=== PATIENT | male | born 1995 | race African-American/Black ===

== ENCOUNTER 2016-10-06 19:36 | Inpatient (IN) | payer OTHER ==
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
--- NOTE | ~2016-10-06 | PA ---
Unit #: [id number] #: [id number] Patient: GHANSHYAM SMITH [id number] [facility] [place] [address] [id number] MR#: [id number] NAME: GHANSHYAM SMITH ROOM: P210 Age: 20 Sex: M Admission Date: 10/06/2016 : 1995 Date of Assessment: Attending Physician: Ganga Quintanilla M.D. Admitting Physician: Ganga Quintanilla M.D. Primary Care Physician: Self Referral-Refer Use Only PSYCHIATRIC ASSESSMENT INFORMANTS The patient reliability, fair; chart reliability, good. CHIEF COMPLAINT Detox from drugs. HISTORY OF PRESENT ILLNESS Ghanshyam Smith is a 20-year-old male, seen on with the above-mentioned complaint. The patient reported tobacco use, age of onset 15; opioid, age of onset 19. The patient reported longest period of sobriety 3 months and last sobriety was 09/08/2015. The patient reported history of blackout and withdrawal symptom, but denied any history of HIV, hepatitis, or any IV drug use. Currently, reporting diaphoresis, depressed mood, irritability, headache, nervousness, poor concentration, restlessness, sleep problem, tremor, and abdominal cramping. The patient reported his drug of choice as opioids. The patient is needing inpatient admission at this time for psychiatric stabilization. The patient reported using heroin 2 g nasally, last use 8:00 a.m. this morning, 1 g. Currently, denied any suicidal or homicidal ideation or any psychotic symptom. PAST PSYCHIATRIC HISTORY Remarkable for history of previous treatment, [facility]. FAMILY HISTORY AND SOCIAL HISTORY The patient lives at home with mother and sister. Diagnosed with bipolar disorder. History of substance abuse. No history of any abuse. MEDICAL HISTORY Unremarkable for any chronic medical illness. Musculoskeletal; muscle strength and tone, no atrophy or abnormal movement. Gait normal. MEDICATION HISTORY None. ALLERGIES No known drug allergies. SUBSTANCE ABUSE HISTORY Please see above. REVIEW OF SYSTEMS Unit #: [id number] #: [id number] Patient: GHANSHYAM SMITH HEENT: Eyes, clear. Ears, nose, mouth, and throat; clear. CARDIOVASCULAR: Unremarkable. RESPIRATORY: Unremarkable. GI: Unremarkable. : Unremarkable. SKIN: Unremarkable. LYMPH NODE: Unremarkable. NEUROLOGIC: Unremarkable. ENDOCRINE: Unremarkable. HEMATOLOGIC: Unremarkable. ALLERGIC/IMMUNOLOGIC: Unremarkable except as mentioned in HPI. MENTAL STATUS EXAMINATION CONSTITUTIONAL: Measurement of vital signs; temperature 97.8, pulse 86, respirations 20, and blood pressure 131/80. Height 6 feet 2 inches and weight 175 pounds. GENERAL APPEARANCE: The patient dressed casually. The patient did not show any facial deformity. MUSCULOSKELETAL: Please see above. PSYCHIATRIC EXAMINATION Description of speech; regular rate, normal volume, normal articulation. Description of thought process, goal directed. Description of association, intact. Description of abnormal psychotic thinking; the patient denied any hallucinations or delusions, but mood lability, substance abuse. Description of the patient's judgment: Concerning everyday activity, poor. Social situation, poor. Concerning psychiatric condition, poor. Please refer to HPI for details. Complete mental status examination; oriented in time, place, and person. Recent and remote memory, fair. Attention span and concentration, fair. Language; able to name object, repeat phrases. Fund of knowledge; aware of current event, passive vocabulary intact. Mood and affect, sad and dysphoric. Insight and judgment, fair to poor. ASSETS AND LIABILITIES Assets; the patient is articulate, able to take care of his ADL. Liabilities; history of substance abuse, depression. ADMITTING DIAGNOSES Psychiatric: Opioid use disorder, severe, F11.20. Secondary diagnosis: Deferred. Medical diagnosis: None. Stressors: Psychosocial stressors. PSYCHIATRIC PLAN, TREATMENT GOAL, AND DISCHARGE PLAN 1. Advised to admit the patient on the inpatient unit. Provide safe, supportive, and structured environment. 2. Ordered labs; CBC, CMP, UA, and UDS. 3. Detox precaution and detox protocol. 4. The patient is to attend all the programing. If needed, consider further adjustment of medication. Group therapy, individual therapy, medication management if needed. 5. Treatment goal is to attain euthymic mood, gain insight into his problem, and learn coping skills. Unit #: [id number] #: [id number] Patient: GHANSHYAM SMITH 6. Discharge plan: Plan is to stabilize the patient and consider followup in outpatient program. ESTIMATED LENGTH OF STAY 3 to 5 days. Dictated by... Ganga Quintanilla M.D. YAMINI/kolton TD: 10/07/2016 21:12 JOB #: [id number] PSYCHIATRIC ASSESSMENT Page 1 of 1 X Ganga Quintanilla MD PSYCHIATRIC ASSESSMENT
--- NOTE | ~2016-10-06 | DS ---
Unit #: [id number] #: [id number] Patient: GIN SMITH [id number] [facility] [address] [place] [address] [id number] MR#: [id number] NAME: GIN SMITH ROOM: [facility] Age: 20 Sex: M Admission Date: 10/06/2016 : 1995 Discharge Date: 10/08/2016 Attending Physician: Ganga Quintanilla M.D. Primary Care Physician: Self Referral-Refer Use Only DISCHARGE SUMMARY REASON FOR ADMISSION Detox from heroin. DIAGNOSTIC STUDIES LABORATORY RESULTS: Unremarkable except urine drug screen positive for marijuana. HOSPITAL COURSE The patient was admitted to inpatient unit on 10/06/2016 and discharged on 10/08/2016. The patient was treated on the inpatient unit with group therapy, individual therapy, and medication management. The patient responded well with the above modalities of treatment. Subsequently, the patient was discharged with a plan to follow up in outpatient program. DISCHARGE MEDICATIONS None. DISCHARGE DIAGNOSES Psychiatric: 1. Bipolar mood disorder, not otherwise specified, F31.89. 2. Opioid use disorder, severe. 3. Cannabis abuse, moderate to severe. Secondary diagnosis: Deferred. Medical diagnosis: None. Stressors: Psychosocial stressors. DISCHARGE INSTRUCTIONS The patient is to follow up in outpatient clinic as per social service manager. CONDITION ON DISCHARGE The patient is pleasant and cooperative. Denied any psychotic symptom or any suicidal ideation. PROGNOSIS Guarded. DIET AND ACTIVITY As tolerated. Dictated by... Unit #: [id number] #: [id number] Patient: GIN SMITH Harvinder Okeefe/janyl TD: 10/08/2016 22:22 JOB #: [id number] DISCHARGE SUMMARY Page 1 of 1 X Ganga Quintanilla MD X DISCHARGE SUMMARY
--- NOTE | ~2016-10-06 | PN ---
Unit #: [id number] #: [id number] Patient: LELO SMITH [id number] [facility] [address] [place] [address] [id number] MR#: [id number] NAME: LELO SMITH ROOM: [facility] Age: 20 Sex: M Admission Date: 10/06/2016 : 1995 Attending Physician: Ganga Quintanilla M.D. Admitting Physician: Ganga Quintanilla M.D. Primary Care Physician: Self Referral-Refer Use Only [facility] PROGRESS NOTES DATE OF SERVICE: 10/07/2016 DISCUSSION Lelo Smith is a 20-year-old male, seen on 10/07/2016. The patient interviewed, chart reviewed, and obtained information from nursing staff. The patient continues to be seclusive, isolative, guarded, flat affect, withdrawn. The patient's vital signs; temperature 97.8, pulse 67, respirations 16, and blood pressure 124/77. Complete review of systems unremarkable. MENTAL STATUS EXAMINATION General appearance, the patient dressed casually. Attention span and concentration, poor. Oriented in place and person. Mood and affect, labile. Speech, monotone. Thought process, concrete. The patient denied any thoughts of harming self or others, but guarded, withdrawn, isolative, seclusive. Recent and remote memory, poor. Insight and judgment, poor. DIAGNOSIS Opioid use disorder, severe. ASSESSMENT AND PLAN Advised to continue with current medication and therapeutic protocol. We will monitor response to medication and make further adjustment of medication. Dictated by... Harvinder Okeefe/kolton TD: 10/07/2016 18:20 JOB #: [id number] Unit #: [id number] #: [id number] Patient: LELO SMITH PROGRESS NOTES Page 1 of 1 X Ganga Quintanilla MD X PROGRESS NOTE
[~2016-10-06 19:36] MED LIST: NO MEDICATIONS
[2016-10-07 09:36] LABS: BASOPHIL% 0.3 % (0-2.5); EOSINOPHIL# 0.1 X10e3 (0-0.7); HEMATOCRIT 42.3 % (38.0-50.0); HEMOGLOBIN 14.1 gm/dL (13.0-16.0); LYMPHOCYTE# 1.8 X10e3 (1.0-3.5); LYMPHOCYTE% 22.8 % (17.0-45.0); MEAN CELL VOLUME 91.2 FL (83-96); MEAN CORPUSCULAR HEMOGLOBIN 30.4 PG (28-34); MEAN CORPUSCULAR HGB CONC 33.3 g/dL (30-36); MONOCYTE# 1.5 X10e3 (0-1.0); MONOCYTE% 18.1 % (3.0-12.0); NEUTROPHIL# 4.7 X10e3 (1.5-7.1); NEUTROPHIL% 57.8 % (40-75); PLATELET COUNT 314 X10e3 (140-420); RED BLOOD COUNT 4.64 X10e (3.90-5.60); RED CELL DISTRIBUTION WIDTH 13.2 % (11.0-15.5); WHITE BLOOD COUNT 8.1 X10e3 (4.0-10.5)
[2016-10-07 09:39] LABS: DIFF IND NO
[2016-10-07 10:06] LABS: ALBUMIN SERUM 3.9 g/dL (3.5-5.0); ALKALINE PHOSPHATASE 73 U/L (32-92); ALT (SGPT) 14 U/L (10-40); AST (SGOT) 15 U/L (10-42); BILIRUBIN,TOTAL 0.2 mg/dL (0.2-2.0); BLOOD UREA NITROGEN 10 mg/dL (9-23); BUN/CREATININE RATIO 9.09; CALCIUM SERUM 9.7 mg/dL (8.4-10.2); CARBON DIOXIDE 29 mmol/L (22-31); CHLORIDE 105 mmol/L (100-111); CREATININE SERUM 1.1 mg/dL (0.6-1.4); GLOM FILT RATE Estimated ABOVE60 mL/min (>60); GLUCOSE FASTING 95 mg/dL (70-110); POTASSIUM 4.4 mmol/L (3.5-5.1); PROTEIN TOTAL SERUM 6.7 g/dL (6.0-8.3); SODIUM 139 mmol/L (135-145)
== END 2016-10-08 11:24 | DRG 897 ==
LOC: P2S 19:36
PROVIDERS: Psychiatry & Neurology Psychiatry
PROC: HZ2ZZZZ Detoxification Services for Substance Abuse Treatment (ICD-10-PCS; principal; 2016-10-06)
DX: F11.20 Opioid dependence, uncomplicated (principal); F39 Unspecified mood [affective] disorder; F32.9 Major depressive disorder, single episode, unspecified; G89.29 Other chronic pain; M54.9 Dorsalgia, unspecified
CPT/HCPCS: 80053; 85025; 86592

== ENCOUNTER 2016-11-18 20:02 | Inpatient (IN) | payer OTHER ==
--- NOTE | ~2016-11-18 | DS ---
Unit #: [id number] #: [id number] Patient: GIN SMITH [id number] [facility] [address] [place] [address] [id number] I MR#: [id number] NAME: GIN SMITH ROOM: [facility] Age: 20 Sex: M Admission Date: 11/18/2016 : 1995 Discharge Date: 11/20/2016 Attending Physician: Ganga Quintanilla M.D. Primary Care Physician: Self Referral-Refer Use Only DISCHARGE SUMMARY REASON FOR ADMISSION Detox. DIAGNOSTIC STUDIES Remarkable for urine drug screen, positive for opiate. HOSPITAL COURSE The patient was admitted to the inpatient unit, on November 18, and discharged on 11/20/2016. The patient was treated with group therapy, individual therapy, and medication management. Detox protocol, detox monitoring. The patient was subsequently discharged and showed improvement and the patient was discharged on no medications. DISCHARGE DIAGNOSES Moore I Opiate use disorder, [id number], F11.20. Mood disorder, NOS, F32.9. Moore II Deferred. Moore III None. Moore IV Psychosocial stressors. Moore V INSTRUCTIONS TO PATIENTS The patient is to follow up in outpatient clinic and clinical social worker. CONDITION AT DISCHARGE The patient is pleasant and cooperative, denied any psychotic symptoms or any suicidal ideation. PROGNOSIS Guarded. DIET AND ACTIVITY As tolerated. Dictated by... Unit #: [id number] #: [id number] Patient: GIN SMITH Harvinder Okeefe/rufina TD: 11/21/2016 07:13 JOB #: [id number] DISCHARGE SUMMARY Page 1 of 1 X Ganga Quintanilla MD X DISCHARGE SUMMARY
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
[2016-11-19 12:35] LABS: ALBUMIN SERUM 3.9 g/dL (3.5-5.0); BILIRUBIN,TOTAL 0.4 mg/dL (0.2-2.0); BUN/CREATININE RATIO 10.9; CALCIUM SERUM 9.5 mg/dL (8.4-10.2); CREATININE SERUM 1.1 mg/dL (0.6-1.4); GLOM FILT RATE Estimated 110.7 mL/min (>60); POTASSIUM 4.1 mmol/L (3.5-5.1); PROTEIN TOTAL SERUM 6.5 g/dL (6.0-8.3)
[2016-11-19 12:44] LABS: BASOPHIL% 0.4 % (0-2.5); EOSINOPHIL# 0.1 X10e3 (0-0.7); EOSINOPHIL% 2.6 % (0.0-7.0); HEMATOCRIT 43.7 % (38.0-50.0); HEMOGLOBIN 14.3 gm/dL (13.0-16.0); LYMPHOCYTE# 1.6 X10e3 (1.0-3.5); LYMPHOCYTE% 40.1 % (17.0-45.0); MEAN CELL VOLUME 92.2 FL (83-96); MEAN CORPUSCULAR HEMOGLOBIN 30.2 PG (28-34); MEAN CORPUSCULAR HGB CONC 32.7 g/dL (30-36); MEAN PLATELET VOLUME 8.5 FL (6.5-11.5); MONOCYTE# 0.8 X10e3 (0-1.0); MONOCYTE% 20.8 % (3.0-12.0); NEUTROPHIL# 1.5 X10e3 (1.5-7.1); NEUTROPHIL% 36.1 % (40-75); PLATELET COUNT 218 X10e3 (140-420); RED BLOOD COUNT 4.74 X10e (3.90-5.60); RED CELL DISTRIBUTION WIDTH 13.7 % (11.0-15.5)
[2016-11-19 12:51] LABS: DIFF IND YES
[2016-11-19 13:12] LABS: PLATELET ESTIMATE NORMAL (NORMAL)
[2016-11-19 13:13] LABS: ANISOCYTOSIS SL
[2016-11-19 13:14] LABS: RBC NORMAL YES
[2016-11-20 09:39] LABS: URINE APPEARANCE CLEAR; URINE BILIRUBIN NEG (NEG); URINE BLOOD NEG (NEG); URINE COLOR YELLOW; URINE GLUCOSE NEG (NEG); URINE KETONE NEG (NEG); URINE LEUKOCYTE ESTERASE NEG (NEG); URINE NITRATE NEG (NEG); URINE PH 8.5 (5-8); URINE PROTEIN NEG (NEG); URINE SPECIFIC GRAVITY 1.018 (1.003-1.035); URINE UROBILINOGEN 0.2 MG/DL (NEG)
[2016-11-20 11:02] LABS: AMPHETAMINE NEG (NEG); BARBITURATES NEG (NEG); BENZODIAZEPINES NEG (NEG); COCAINE NEG (NEG); MARIJUANA NEG (NEG); OPIATES POS (NEG); TRICYCLIC ANTIDEPRESSANTS NEG (NEG); U METHADONE NEG (NEG)
== END 2016-11-20 11:20 | DRG 885 ==
LOC: P1E 20:02
PROVIDERS: Psychiatry & Neurology Psychiatry
PROC: HZ2ZZZZ Detoxification Services for Substance Abuse Treatment (ICD-10-PCS; principal; 2016-11-18)
DX: F39 Unspecified mood [affective] disorder (principal); F11.20 Opioid dependence, uncomplicated; F32.9 Major depressive disorder, single episode, unspecified
CPT/HCPCS: 80053; 80307; 81003; 85025; 86592

== ENCOUNTER 2017-01-27 20:00 | Inpatient (IN) | payer OTHER ==
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
--- NOTE | ~2017-01-27 | PN ---
Unit #: [id number] #: [id number] Patient: GIN SMITH [id number] [facility] [address] [place] [address] [id number] MR#: [id number] NAME: GIN SMITH ROOM: [facility] Age: 21 Sex: M Admission Date: 01/27/2017 : 1995 Attending Physician: Loc Jenkins M.D. Admitting Physician: Loc Jenkins M.D. Primary Care Physician: Primary Care Physician Johana GEORGE NOTES DATE OF SERVICE 01/30/2017 DISCUSSION Mr. Smith is a 21-year-old male who was seen today. Chart was reviewed and case was discussed with the staff. He has been getting anxious, restless, agitated, and irritable, and wanting to sign himself out of the treatment and has been showing poor insight into his situation and poor motivation towards treatment. However, he denies any suicidal or homicidal ideation. I strongly encouraged and advised him to complete chemical dependency medical detox treatment program. We will monitor his response to treatment interventions, and we will make further adjustments as needed. Dictated by... Harvinder Wagner/sanchez TD: 01/30/2017 08:57 JOB #: [id number] ANEL GEORGE NOTES Page 1 of 1 X Loc Jenkins MD PROGRESS NOTE
--- NOTE | ~2017-01-27 | DS ---
Unit #: [id number] #: [id number] [facility] [id number] [facility] [address] [place] [address] [id number] I MR#: [id number] NAME: GIN SMITH ROOM: [facility] Age: 21 Sex: M Admission Date: 01/27/2017 : 1995 Discharge Date: 01/30/2017 Attending Physician: Loc Jenkins M.D. Primary Care Physician: Primary Care Physician No DISCHARGE SUMMARY IDENTIFYING INFORMATION Mr. Smith is a 21-year-old single male with history of substance abuse and mood disorder who was self-referred to the hospital. DISCHARGE DIAGNOSIS PSYCHIATRIC 1. Opioid dependence, moderate, in acute withdrawal. 2. History of mood disorder. MEDICAL None. STRESSORS Mild psychosocial stressors. HISTORY OF PRESENT ILLNESS/PAST PSYCHIATRIC HISTORY/PAST MEDICAL HISTORY Please copy and paste from initial evaluation. HOSPITAL COURSE The patient was admitted to the adult chemical dependency unit at [facility] and was oriented to the hospital environment. Routine p.r.n. medications were initiated, and he was started on the opiate detox protocol. However, patient seemed to be showing very poor insight into his situation as well as poor motivation. Decided that he does not want to be in the program. Decided he wanted to leave against medical advice and then was encouraged to complete detox, he decided not to accept the recommendation and was denying any suicidal ideation, intent or plan and was not meeting criteria for any voluntary psychiatric hospitalization and as such it was decided that she will be discharged and will continue treatment on outpatient basis. DISCHARGE MEDICATIONS None. DISCHARGE CONDITION Stable. PROGNOSIS Guarded. Dictated by... Unit #: [id number] #: [id number] Patient: GIN SMITH Harvinder Wagner/jaime TD: 02/20/2017 03:08 JOB #: [id number] DISCHARGE SUMMARY Page 1 of 1 X Loc Jenkins MD X DISCHARGE SUMMARY
--- NOTE | ~2017-01-27 | PN ---
Unit #: [id number] #: [id number] Patient: GIN SMITH [id number] [facility] [address] [place] [address] [id number] I MR#: [id number] NAME: GIN SMITH ROOM: [facility] Age: 21 Sex: M Admission Date: 01/27/2017 : 1995 Attending Physician: Loc Jenkins M.D. Admitting Physician: Loc Jenkins M.D. Primary Care Physician: Primary Care Physician Johana GEORGE NOTES DATE 01/29/2017 DISCUSSION Mr. Smith is a 21-year-old male who was seen today and chart was reviewed and case was discussed with the staff. He has been anxious, withdrawn and rather seclusive to himself. Meanwhile, he has been cooperative with treatment recommendations and has been taking medications and tolerating them fairly well. MENTAL STATUS EXAMINATION Young male who was casually dressed with fair personal hygiene and appears to be in no acute distress or discomfort. He was awake and alert on interaction with intact orientation. His mood was anxious with congruent affect. He denies any suicidal or homicidal ideation. His insight and judgement remain slightly impaired. TREATMENT PLAN 1. Will adjust the medications. Will monitor response. 2. Will continue to follow up. Dictated by... Loc Jenkins M.D. PLACIDO/xenia TD: 01/29/2017 18:13 JOB #: [id number] [facility] PROGRESS NOTES Page 1 of 1 X Loc Jenkins MD PROGRESS NOTE
--- NOTE | ~2017-01-27 | PA ---
Unit #: [id number] #: [id number] Patient: GIN SMITH [id number] [facility] [place] [address] [id number] I MR#: [id number] NAME: GIN SMITH ROOM: 75 Age: 21 Sex: M Admission Date: 01/27/2017 : 1995 Date of Assessment: 01/28/2017 Attending Physician: Loc Jenkins M.D. Admitting Physician: Loc Jenkins M.D. Primary Care Physician: Primary Care Physician No PSYCHIATRIC ASSESSMENT DATE OF SERVICE 01/28/2017. IDENTIFYING DATA Mr. Smith is a 21-year-old single male, who is a resident of [place], [place], and was self-referred to the hospital on a voluntary basis. CHIEF COMPLAINT "I've been abusing heroin daily for the past one month." HISTORY OF PRESENT ILLNESS Mr. Smith is a 21-year-old male with history of substance abuse and dependence, who brought himself to the hospital stating that he has been using drugs and had a COWS of 14 indicating significant withdrawal symptoms stating that he has been using a gram of heroin daily via snorting and the last use was yesterday morning and also reports using Klonopin twice a week and with the last use being 3 days ago. He does report significant withdrawal symptoms, depression, anxiety, irritability, restlessness, and feelings of hopelessness and helplessness. Reports history of suicidal ideation and overdose of heroin in 11/2016, but was not able to say whether or not it was intentional. He currently denied any suicidal ideations, intent, or plan. SUBSTANCE ABUSE HISTORY The patient reports history of cannabis, opioids, and benzodiazepine abuse, and currently, heroin has been his drug of choice. PAST PSYCHIATRIC HISTORY The patient has had a history of multiple inpatient chemical dependency treatment including being at [facility] and [facility], and review of the medical records indicate currently he is not active in any treatment program, is not seeing a psychiatrist, and is not taking any psychotropic medications. PAST MEDICAL HISTORY No acute or chronic medical illnesses. ALLERGIES Haldol. PERSONAL AND SOCIAL HISTORY A 21-year-old male, who reports that he is single, Unit #: [id number] #: [id number] Patient: GIN SMITH unemployed, and lives at home with his mother and his sister and has fairly decent social support system. MENTAL STATUS EXAMINATION Young male, who was casually dressed with fair personal hygiene, appears to be in no acute distress or discomfort. He was awake and alert on interaction with intact orientation to time, place, and person. His mood was anxious and depressed with a congruent affect. His speech was slow and goal directed. His thought processes were disorganized with some looseness of associations and flight of ideas. He denies any suicidal or homicidal ideations and also denies any auditory or visual hallucinations. His insight and judgment remain significantly impaired. DIAGNOSTIC IMPRESSION Psychiatric: Opioid dependence, moderate, in acute withdrawals; benzodiazepine dependence, moderate; and opioid-induced mood disorder. Medical: None. Stressors: Moderate psychosocial stressors. TREATMENT PLAN 1. The patient has presented with a history of mood disorder and substance abuse and has been decompensating and will need inpatient hospitalization for detoxification and safety and stabilization. We will start him on detox protocol. We will closely monitor for any worsening withdrawal symptoms. 2. Supportive therapy was provided to the patient. 3. Safe, structured, and nourishing environment will be provided. ESTIMATED LENGTH OF STAY 5 to 7 days. ABILITY TO HELP SELF Limited. WILLINGNESS TO HELP SELF The patient appears to be willing to help self. STRENGTHS 1. Communicative. 2. Cooperative. PROBLEMS 1. Chronic dysphoric symptoms. 2. Chronic chemical dependency. 3. Poor social support system. DISCHARGE CRITERIA This will be contingent upon the patient's ability to go through detox without having any significant withdrawal symptoms as well as his ability to stay safe to himself and others, particularly after discharge from the hospital. Dictated by... Harvinder Wagner/janyl Unit #: [id number] #: [id number] Patient: GIN SMITH TD: 01/28/2017 19:16 JOB #: [id number] PSYCHIATRIC ASSESSMENT Page 1 of 1 X Loc Jenkins MD PSYCHIATRIC ASSESSMENT
[2017-01-28 09:46] LABS: BASOPHIL% 0.3 % (0-2.5); EOSINOPHIL# 0.1 X10e3 (0-0.7); EOSINOPHIL% 1.7 % (0.0-7.0); HEMATOCRIT 43.6 % (38.0-50.0); HEMOGLOBIN 14.4 gm/dL (13.0-16.0); LYMPHOCYTE# 2.5 X10e3 (1.0-3.5); LYMPHOCYTE% 33.8 % (17.0-45.0); MEAN CELL VOLUME 91.8 FL (83-96); MEAN CORPUSCULAR HEMOGLOBIN 30.4 PG (28-34); MEAN CORPUSCULAR HGB CONC 33.1 g/dL (30-36); MEAN PLATELET VOLUME 8.4 FL (6.5-11.5); MONOCYTE# 1.1 X10e3 (0-1.0); MONOCYTE% 15.2 % (3.0-12.0); NEUTROPHIL# 3.7 X10e3 (1.5-7.1); PLATELET COUNT 291 X10e3 (140-420); RED BLOOD COUNT 4.75 X10e (3.90-5.60); RED CELL DISTRIBUTION WIDTH 13.3 % (11.0-15.5); WHITE BLOOD COUNT 7.5 X10e3 (4.0-10.5)
[2017-01-28 09:57] LABS: ALBUMIN SERUM 4.3 g/dL (3.5-5.0); BILIRUBIN,TOTAL 0.5 mg/dL (0.2-2.0); CALCIUM SERUM 9.8 mg/dL (8.4-10.2); CREATININE SERUM 0.7 mg/dL (0.6-1.4); GLOM FILT RATE Estimated 155.3 mL/min (>60); POTASSIUM 4.2 mmol/L (3.5-5.1); PROTEIN TOTAL SERUM 7.1 g/dL (6.0-8.3)
[2017-01-28 09:59] LABS: DIFF IND NO
[2017-01-30 10:57] LABS: URINE APPEARANCE CLEAR; URINE BILIRUBIN NEG (NEG); URINE BLOOD NEG (NEG); URINE COLOR DK YELLOW; URINE GLUCOSE NEG (NEG); URINE KETONE TRACE (NEG); URINE LEUKOCYTE ESTERASE TRACE (NEG); URINE NITRATE NEG (NEG); URINE PH 6.5 (5-8); URINE PROTEIN TRACE (NEG); URINE SPECIFIC GRAVITY 1.033 (1.003-1.035); URINE UROBILINOGEN 0.2 MG/DL (NEG)
[2017-01-30 11:01] LABS: URBCS1 AUWI 0-2 /[HPF] (0-2); URINE BACTERIA AUWI NEG (NEGATIVE); URINE SQUAMOUS EPITHELIAL CELL NONE SEEN /[HPF]; UWBCS1 AUWI 0-2 (0-5)
[2017-01-30 11:29] LABS: AMPHETAMINE NEG (NEG); BARBITURATES NEG (NEG); BENZODIAZEPINES NEG (NEG); COCAINE NEG (NEG); MARIJUANA NEG (NEG); OPIATES POS (NEG); TRICYCLIC ANTIDEPRESSANTS NEG (NEG); U METHADONE NEG (NEG)
== END 2017-01-30 10:11 | disposition left against medical advice (07) | DRG 894 ==
LOC: P1E 21:23
PROVIDERS: Psychiatry & Neurology Psychiatry
PROC: HZ2ZZZZ Detoxification Services for Substance Abuse Treatment (ICD-10-PCS; principal; 2017-01-27)
DX: F11.23 Opioid dependence with withdrawal (principal); F13.20 Sedative, hypnotic or anxiolytic dependence, uncomplicated; F11.24 Opioid dependence with opioid-induced mood disorder; F17.210 Nicotine dependence, cigarettes, uncomplicated
CPT/HCPCS: 80053; 80307; 81003; 85025; 86592